=== PATIENT | male | born 1995 | race Caucasian/White ===

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

== ENCOUNTER → 2017-01-17 | Outpatient (REF) | payer OTHER | LOC: M LAB REF 12:42 | PROVIDERS: ATTEND Nurse Practitioner Adult Health | DX: E83.52 Hypercalcemia (principal) ==

== ENCOUNTER → 2017-02-23 | Outpatient (REF) | payer OTHER | LOC: M LAB REF 11:49 | DX: E83.52 Hypercalcemia (principal) ==

== ENCOUNTER → 2017-04-25 | Outpatient (REF) | payer OTHER ==
[2017-04-26 13:44] LABS: PHOSPHORUS LEVEL 3.1 MG/DL (2.5-4.9)
[2017-04-26 13:44] LABS: TOTAL PROTEIN 7.7 GM/DL (6.4-8.2)
[2017-04-27 12:49] LABS: ALBUMIN 5.11 GM/DL (3.29-5.55); ALBUMIN % 66.3 % (55.8-66.1); ALPHA-1-GLOBULIN % 3.5 % (2.9-4.9); ALPHA-2-GLOBULINS % 9.4 % (7.1-11.8); BETA-1-GLOBULINS % 5.8 % (4.7-7.2); BETA-2-GLOBULINS % 4.1 % (3.2-6.5); GAMMA GLOBULIN % 10.9 % (11.1-18.8)
[2017-04-27 12:50] LABS: ALPHA-1-GLOBULINS 0.27 GM/DL (0.17-0.41)
== END ==
LOC: M LAB REF 04-26 12:39
DX: E83.52 Hypercalcemia (principal)
CPT/HCPCS: 84100

== ENCOUNTER → 2017-11-07 | Outpatient (REF) | payer OTHER | LOC: M LAB REF 15:22 | DX: J02.9 Acute pharyngitis, unspecified (principal) ==

== ENCOUNTER → 2019-01-13 | Outpatient (REF) | payer OTHER ==
[2019-01-13 14:40] LABS: CALCIUM, URINE 7.4 MG/DL; TOTAL PROTEIN,RANDOM URINE 7.7 MG/DL (0.0-12.0)
[2019-01-13 21:11] LABS: CALCIUM, 24 HOUR URINE 155.4 MG/24HR (42-353); TOTAL VOLUME, URINE 2100 ML
== END ==
LOC: M LAB REF 13:43
PROVIDERS: ATTEND Nurse Practitioner Adult Health
DX: E83.52 Hypercalcemia (principal)

== ENCOUNTER → 2019-01-15 | Outpatient (REF) | payer OTHER ==
[2019-01-15 13:46] LABS: URINE TOTAL PROTEIN 12.4 MG/DL (0-12)
[2019-01-15 13:51] LABS: TOTAL PROTEIN 7.6 GM/DL (6.4-8.2)
[2019-01-16 11:13] LABS: ALBUMIN 4.94 GM/DL (3.29-5.55); ALPHA-1-GLOBULIN % 3.7 % (2.9-4.9); ALPHA-2-GLOBULINS % 9.6 % (7.1-11.8); BETA-1-GLOBULINS % 5.8 % (4.7-7.2); BETA-2-GLOBULINS % 4.2 % (3.2-6.5); GAMMA GLOBULIN % 11.7 % (11.1-18.8)
[2019-01-16 11:14] LABS: ALPHA-1-GLOBULINS 0.28 GM/DL (0.17-0.41); ALPHA-2-GLOBULINS 0.73 GM/DL (0.42-0.99); BETA-1-GLOBULINS 0.44 GM/DL (0.28-0.60); BETA-2-GLOBULINS 0.32 GM/DL (0.19-0.55); GAMMA GLOBULINS 0.89 GM/DL (0.65-1.58)
[2019-01-16 12:45] LABS: URINE VOLUME RANDOM ML
[2019-01-16 12:46] LABS: UPEP INTERPRETATION NO M-SPIKE NOTED
== END ==
LOC: M LAB REF 12:24
PROVIDERS: ATTEND Nurse Practitioner Adult Health
DX: Z00.01 Encounter for general adult medical examination with abnormal findings (principal)

== ENCOUNTER → 2020-11-24 | Outpatient (CLI) | payer OTHER ==
--- NOTE | 2020-11-28 17:44 | ECHO ---
ECHOCARDIOGRAM DATE OF PROCEDURE: 11/24/2020 Age: 25 Gender: Male Height: 177 cm Weight: 70 kilograms REFERRING PHYSICIAN: Zacarias Bruce M.D. INDICATION: Abnormal ECG. 2D MEASUREMENTS: Left ventricle diastole 4.9 cm Left ventricle systole 3.1 cm Intraventricular septum 0.88 cm Posterior wall 0.83 cm Left atrium 2.7 cm Aortic root 2.8 cm Left atrial volume index 22 Proximal ascending aorta 2.7 cm Doppler measurements: No aortic stenosis No aortic regurgitation No mitral stenosis No mitral regurgitation Trace tricuspid regurgitation No pulmonic regurgitation Aortic valve velocity 166 cm/sec LVOT velocity 150 cm/sec Mitral E velocity 109 cm/sec Mitral A velocity 44.3 cm/sec Mitral E deceleration time 187 msec Pulmonary acceleration time 165 msec MITRAL ANNULAR TISSUE DOPPLER: E prime septal 13.4 cm/sec E prime lateral 19.8 cm/sec DESCRIPTION: Rhythm was sinus. Image quality was good. No pericardial effusion. This was a 2D, M-mode color flow Doppler and pulse wave Doppler examination and included mitral annular tissue Doppler. CONCLUSIONS: 1. Normal echocardiogram Doppler. 2. Normal left ventricle internal dimensions and wall thickness. Normal regional LV wall motion and wall thickening. Normal LV systolic function. LVEF 61% (3D). Supernormal LV diastolic function.
== END ==
LOC: M CARPUL 13:15
PROVIDERS: ATTEND Internal Medicine Cardiovascular Disease
DX: R94.31 Abnormal electrocardiogram [ECG] [EKG] (principal)

== ENCOUNTER → 2022-04-26 | Outpatient (CLI) | payer BC | LOC: M RAD 11:54 | DX: R22.2 Localized swelling, mass and lump, trunk (principal) ==

== ENCOUNTER → 2022-10-03 | Outpatient (REF) | payer BC | LOC: M LABWUC 17:50 | PROVIDERS: ATTEND Nurse Practitioner Family | DX: R19.4 Change in bowel habit (principal); R10.10 Upper abdominal pain, unspecified ==

== ENCOUNTER → 2022-12-21 | Outpatient (REF) | payer BC | LOC: M LAB REF 16:46 | PROVIDERS: ATTEND Nurse Practitioner Family | DX: R19.7 Diarrhea, unspecified (principal) ==

== ENCOUNTER → 2022-12-22 | Outpatient (REF) | payer BC | LOC: M LAB REF 13:29 | PROVIDERS: ATTEND Nurse Practitioner Family | DX: R19.7 Diarrhea, unspecified (principal) ==